=== PATIENT | male | born 1995 | race Two or more races ===

== ENCOUNTER 2024-12-03 15:17 | Emergency (ER) | payer MEDICAID, SELFPAY ==
--- NOTE | 2024-12-03 15:56 | XR_ITS ---
EXAMINATION: CT abdomen pelvis wo con ORDERING PROVIDER: SWATHI Cannon HISTORY: Left flank pain TECHNIQUE: Without intravenous or oral contrast, CT was used in the volumetric, helical imaging acquisition of the abdomen and pelvis with 2-D and 3-D reformats generated on a separate workstation and submitted for interpretation. Institutional dose reducing protocols were utilized. Evaluation of hollow viscus and solid viscera is limited secondary to lack of intravenous and oral contrast. RADIATION DOSE: DLP 931 mGy-cm COMPARISON: None. FINDINGS: LIVER: Diffuse decreased density. BILIARY: Unremarkable. PANCREAS: Unremarkable. SPLEEN: Unremarkable. ADRENAL GLANDS: Unremarkable. KIDNEYS: Unremarkable. URETERS: Trace fat stranding about the distal left ureter. No ureterolithiasis. No hydroureter. BLADDER: Mild bladder wall thickening. Bladder only mildly distended. CT provides limited evaluation of the urinary bladder. HOLLOW VISCUS: Couple of scattered colonic diverticula without surrounding inflammatory changes. Appendix is not abnormally dilated. No surrounding inflammatory changes. Nonobstructive bowel gas pattern. VASCULATURE: Limited evaluation without contrast. Trace aortoiliac atherosclerotic disease. PELVIS: No free fluid. Probable small right epididymal head cyst. LYMPH NODES: Limited evaluation without contrast. Grossly unremarkable. LUNG BASES: Punctate left lower lobe calcified granuloma. BONES: Normal. ABDOMINAL WALL: Small fat filled umbilical hernia with 3 mm neck. IMPRESSION: Mild bladder wall thickening and mild fat stranding about the distal left ureter without urolithiasis. Findings may be due to urinary tract infection, recently passed stone, and/or incomplete distention of the urinary bladder. Hepatic steatosis, colonic diverticulosis, and early atherosclerotic changes in a 29-year-old. Query metabolic syndrome.
--- NOTE | 2024-12-03 15:58 | PD.EDABDPN ---
ED Abdominal Pain RME/HPI General Chief Complaint: Abdominal Pain Stated complaint: LEFT UPPER ABD PAIN, DIARRHEA Time seen by provider: 12/03/24 15:47 Arrival date/time: 12/03/24 15:17 RME / HPI RME / HPI narrative: 29-year-old male patient came in for evaluation regarding left flank pain. Onset of symptoms since last night as left lower flank, described as sharp pain, severity moderate, patient feels like a knot on the left flank area. Denies any vomiting fever dysuria hematuria or other complaints. No medications taken prior to arrival Related Data Previous Rx's ?Medication ?Instructions ?Recorded cephalexin 500 mg capsule 500 mg PO TID 7 days #21 caps 12/03/24 Allergies Allergy/AdvReac Type Severity Reaction Status Date / Time No Known Allergies Allergy Verified 07/17/18 11:25 Review of Systems Review of Systems Narrative Review of Systems: Review of system reviewed and within normal limits except mentioned in HPI ED Exam Narrative Physical exam: VITAL SIGNS: Reviewed. GENERAL APPEARANCE: Alert and interactive, follows commands, no acute distress, HEAD AND FACE: Non-traumatic. ENT: PERRL, pink conjunctivitis, eyelid no trauma, Mucous membrane moist. NECK: Supple, nontender, no nuchal rigidity. CHEST: No tenderness, no crepitus, no paradoxical movement, no retractions. LUNGS: Clear, well ventilated, symmetric, no rales, no wheezing, no ronchi, no stridor, good breath sounds bilaterally. HEART: Regular rate, regular rhythm, no murmur, no gallops. ABDOMEN: Soft, positive bowel sounds, nondistended, no guarding, nontender, no rebound, no masses, left flank tenderness RECTAL: Deferred. GENITAL: Deferred. NEUROLOGICAL: Gross motor function intact sensory function intact, Appropriate for age. MUSCULOSKELETAL: low back nontender, full range of motion. EXTREMITIES: Nontender, full range of motion. SKIN: Color pink, dry, no rash, no lacerations, no abrasions, no contusions. LYMPHATICS: Deferred. Course Quality Measures none Orders Category Date Time Status CT abdomen pelvis wo con Stat Exams 12/03/24 15:56 Completed CBC [CBC] Stat Lab 12/03/24 16:07 Completed CMP [Comprehensive Metabolic Panel] Stat Lab 12/03/24 16:07 Completed UA, C/S IF [Urinalysis, C/S if Indicated] Stat Lab 12/03/24 16:30 Completed Ketorolac Inj [Toradol Inj] Med 12/03/24 15:56 Discontinued 30 mg IM X1 ONE cephALEXin [Keflex] Med 12/03/24 18:29 Once 500 mg PO X1 ONE Abdominal Pain [facility] Narrative [facility] Narrative:: 29-year-old male patient came in for evaluation regarding left flank pain. Onset of symptoms since last night as left lower flank, described as sharp pain, severity moderate, patient feels like a knot on the left flank area. Denies any vomiting fever dysuria hematuria or other complaints. No medications taken prior to arrival Laboratory workup is significant for UTI. Otherwise unremarkable. CT scan of the abdomen and pelvis showed Mild bladder wall thickening and mild fat stranding about the distal left ureter without urolithiasis. Findings may be due to urinary tract infection, recently passed stone, and/or incomplete distention of the urinary bladder. Hepatic steatosis, colonic diverticulosis, and early atherosclerotic changes in a 29-year-old. Query metabolic syndrome. Results discussed with the patient. Patient data External records reviewed:: None Clinical information provided by:: patient Social determinants that could affect healthcare access:: none Patient has the following chronic illnesses:: None How is presenting disease/condition affected by chronic disease/condition?: no chronic disease Evaluation data The following diagnostics were reviewed and interpreted by me:: lab results and radiology exam(s) Lab and/or radiology exams considered but not ordered:: None Interpretation Summary: See results in MDM Medications / Prescriptions Medications or Prescriptions considered but not ordered:: None Medication administrations:: Medication Administration History Discontinued Medications Cephalexin HCl (Cephalexin 250 Mg Capsule) 500 mg PO X1 ONE Stop: 12/03/24 18:30 Ketorolac Tromethamine (Ketorolac Inj 60 Mg/2 Ml Vial) 30 mg IM X1 ONE Stop: 12/03/24 15:57 Last Admin: 12/03/24 16:12 Dose: Not Given Documented By: OA Non-Admin Reason: Patient Refused Keflex and Toradol Consultations Consultation(s) initiated? (list below): No Diagnosis Differential diagnosis abdominal pain: abdominal pain and other (Kidney stones, UTI) Most likely diagnosis given after review of the tests above:: UTI, flank pain Admission Indicated Admission indicated?: not indicated Admission Request Was there a request for admission?: No Disposition Plan Disposition Plan: Discharge Discharge Attestation Discharge Attestation: The patient and all family members were given an opportunity to ask questions and understood the discharge instructions. Discharge instructions specifically effects, indications for sooner follow up or return to the emergency department, and the expected course of current diagnosis. Patient condition: Stable Discharge Plan Plan Patient Disposition: HOME (Self Care) Disposition Comment: Stable Prescriptions/Referrals Prescriptions/Med Rec: New cephalexin 500 mg capsule 500 mg PO TID 7 Days Qty: 21 0RF Referrals: Yuri Leroy MD [Primary Care Provider] - In 1 week Problem List Clinical Impression: UTI (urinary tract infection), Flank pain Patient/Caregiver Discharge Instructions Discharge Activity: activity as tolerated Education Materials: Understanding Urinary Tract ... Additional Instructions: Thank you for the opportunity for serving you today. You are stable for discharged . You are advised to: Follow-up with your PCP in 1 to 2 days Return to ED for worsening of symptoms Increase oral fluids Take medication as prescribed Print Language: Icelandic Stand Alone Forms: [employer] Award Info., Patient Portal Info Letter TRAVIS/SWATHI Supervising Physician TRAVIS/SWATHI Supervising Physician: MD Andrews
[2024-12-03 16:39] LABS: Basophils # (Auto) 0.1 Thou/mm3 (0.0-0.2); Basophils % (Auto) 1 % (0-2.5); Eosinophils # (Auto) 0.3 Thou/mm3 (0.0-0.5); Eosinophils % (Auto) 3 % (0-10); Hematocrit 44.1 % (41.0-53.0); Hemoglobin 15.7 g/dL (13.5-16.0); Immature Granulocytes % (Auto) 0 % (0-0); Immature Granulocytes Auto 0.03 Thou/mm3 (0.00-0.00); Lymphocytes % (Auto) 24 % (10-50); Mean Corpuscular HGB Conc 35.6 g/dl (31.0-37.0); Mean Corpuscular Hemoglobin 29.9 pg (25.0-35.0); Mean Corpuscular Volume 84 fL (80-100); Monocytes # (Auto) 0.7 Thou/mm3 (0.0-0.8); Monocytes % (Auto) 9 % (0-12); Neutrophils # (Auto) 5.3 Thou/mm3 (1.8-7.7); Neutrophils % (Auto) 63 % (37-80); Nucleated Red Blood Cell % 0 /100 WBC (0); Platelet Count 357 Thou/mm3 (140-440); RDW Standard Deviation 38.8 fL (35.1-43.9); Red Blood Count 5.25 Miln/mm3 (4.50-5.90); White Blood Count 8.5 Thou/mm3 (3.8-10.6)
[2024-12-03 16:41] LABS: Collection Type, Urine Clean Catch
[2024-12-03 16:48] LABS: Bilirubin,Urine Negative (Negative); Blood,Urine Negative (Negative); Clarity,Urine Clear (Clear/Hazy); Color,Urine Yellow (Lt Yel-Yel); Culture Indicated,Urine Not Indicated; Glucose, Urine Negative (Negative); Ketones,Urine Negative (Negative); Leukocyte Esterase,Urine Positive (Negative); Nitrite,Urine Negative (Negative); PH,Urine 6.5 (5.0-7.0); Protein,Urine Trace (Neg - Trace); RBC,Urine 1 /hpf (0-3); Squamous Epithelial Cell,Urine 6 /hpf (0-5); Urobilinogen,Urine Negative mg/dL (0.0-1.0); WBC,Urine 9 /hpf (0-5)
[2024-12-03 17:01] LABS: Alanine Aminotransferase 56 U/L (10-49); Albumin, Serum 4.8 gm/dL (3.5-5.0); Albumin/Globulin Ratio 1.5 (1.2-2.2); Alkaline Phosphatase 114 U/L (46-116); Anion Gap 10 (7-16); Aspartate Amino Transferase 29 U/L (0-34); BUN/Creatinine Ratio 6 Ratio (12-20); Bilirubin,Total 0.7 mg/dL (0.3-1.2); Blood Urea Nitrogen < 5 mg/dL (9-23); Calcium 9.8 mg/dL (8.3-10.6); Calcium (Corrected) 9.8 mg/dL (8.5-10.1); Carbon Dioxide 27.6 mMol/L (20.0-31.0); Chloride 101 mMol/L (98-107); Creatinine (Component) 0.8 mg/dL (0.6-1.3); Globulin 3.2 gm/dL (2.3-3.5); Glucose 101 mg/dL (74-106); Osmolality,Calculated 274 (275-295); Potassium 3.6 mMol/L (3.4-5.1); Sodium 139 mMol/L (136-145); eGFR > 60 See Note
[2024-12-03] MEDS: cephALEXin 250 MG CAPSULE 500 MG PO (19:01)
== END 2024-12-03 19:23 | disposition home or self-care (01) ==
PROVIDERS: Nurse Practitioner Family; Emergency Provider Emergency Medicine; PCP Family Medicine
DX: N39.0 Urinary tract infection, site not specified (principal)
CPT/HCPCS: 36415; 74176; 80053; 81001; 85025; 99284; A9270

== ENCOUNTER 2025-05-31 22:36 | Emergency (ER) | payer MEDICAID, SELFPAY ==
[2025-05-31 22:38] VITALS: BMI 38.7
--- NOTE | 2025-05-31 23:18 | XR_ITS ---
Examination: PA lateral chest 2 views. Technique: Upright PA lateral chest 2 views. Date and time: May 31, 2025, 11:17 PM Indications: Coughing shortness of breath today, history pneumonia in these ago. Findings: Normal heart size. No pneumonia or pulmonary edema. The osseous structures are intact Impression: No pneumonia identified.
[2025-05-31 23:44] VITALS: BP 162/84; PULSE 92; RESP 19; TEMP 36.7; O2SAT 95
--- NOTE | 2025-05-31 23:55 | EDNOTE_ITS ---
ED SOB =RME/HPI General Chief Complaint: Shortness of Breath/Dyspnea Stated Complaint: COUGH,DIFF BREATHING Time Seen by Provider: 06/01/25 00:07 Arrival date/time: 05/31/25 22:36 RME / HPI RME / HPI Narrative: See [facility] for Dr. Don's HPI documentation. Related Data Previous Rx's ?Medication ?Instructions ?Recorded albuterol sulfate 90 mcg/actuation 2 puff inhalation Q 6H PRN 06/01/25 aerosol inhaler shortness of breath or wheez ing #8.5 grams azithromycin 500 mg tablet 500 mg PO QDAY 3 days #3 ta bs 06/01/25 (Zithromax TRI-DONTA) prednisone 50 mg tablet 50 mg PO QDAY #3 tabs Allergies Allergy/AdvReac Type Severity Reaction Status Date / Time No Known Allergies Allergy Verified 05/31/25 22:37 Review of Systems Review of Systems Systems Reviewed: All systems reviewed, normal except as documented Past Medical History Past Medical History NEUROLOGIC: Negative Neurological Disorders or Seizures CARDIAC: Negative Cardiac Disorders or Congestive Heart Failure RESPIRATORY: Negative Chronic Obstructive Pulmonary Disease (COPD) GASTROINTESTINAL: Negative Gastrointestinal Disorders, Hepatitis or Colorectal Cancer GENITOURINARY: Negative Genitourinary Disorders, Renal Disease or Prostate Cancer REPRODUCTIVE: Negative Breast Cancer or Testicular Cancer MUSCULOSKELETAL: Negative Musculoskeletal Disorders or Bone Cancer ENDOCRINE: Negative Endocrine Disorders, Diabetes Mellitus Type 1 or Diabetes Mellitus Type 2 HEMATOLOGIC: Negative Blood Disorders OTHER HISTORY: Positive Falls (3 MONTHS AGO, SOCCER, HURT RIGHT KNEE); Negative Hospitalization, Autoimmune Disease, Down Syndrome, Developmental Delay, Shingles, Blood Transfusions, Blood Transfusion Reaction, Anesthesia Reactions, Organ Transplant, Chemotherapy, Radiation Therapy, Hyperbaric Therapy, MRSA, VRSA, Vancomycin-Resistant Enterococci, Human Immunodeficiency Virus (HIV), Chicken Pox, Measles, Mumps, Rubella (Nepalese Measles), Pertussis, Clostridium Difficile, Breast Cancer, Cervical Cancer, Colorectal Cancer, Lung Cancer, Ovarian Cancer, Prostate Cancer or Testicular Cancer Family History FAMILY HISTORY: Negative Family Psychiatric Problems, Family Respiratory Disorders, Family Cardiac Disorders, Family Gastrointestinal Problems, Family Cancer, Family Surgery or Family Anesthesia Reaction Surgical History SURGICAL: Negative Cardiac Surgery, Endocrine Surgery, Ear Surgery, Abdominal Surgery, Nephrectomy, Joint Replacement, Neurologic Surgery, Mastectomy, Vasectomy or Organ Transplant Social History SMOKING STATUS: Never smoker ED Exam Narrative Physical exam: See [facility] for Dr. Don's physical exam documentation. Course Course Course Narrative: CXR is ordered for determining the etiology of shortness of breath. Quality Measures none Orders Category Date Time Status Bedside COVID-19 Antigen Test NOW Care 05/31/25 23:59 Completed Bedside Influenza A&B Antigen Test NOW Care 05/31/25 23:59 Completed XR chest 2V Stat Exams 05/31/25 23:18 Completed Albuterol/Ipratr Rt Abbey [Duoneb Rt Abbey] Med 05/31/25 23:59 Discontinued 3 ml INH X1 ONE Azithromycin Po [Zithromax PO] Med 06/01/25 00:52 Discontinued 500 mg PO X1 ONE predniSONE Med 05/31/25 23:59 Discontinued 60 mg PO X1 ONE Vital Signs Vital signs: Vital Signs Temperature 98.1 F 05/31/25 23:44 Pulse Rate 92 05/31/25 23:44 Respiratory Rate 19 05/31/25 23:44 Blood Pressure 162/84 H 05/31/25 23:44 Pulse Oximetry (%) 95 05/31/25 23:44 Oxygen Delivery Method Room Air 05/31/25 23:44 Shortness of Breath / Dyspnea MDM Narrative MDM Narrative:: This section includes all my notes and documentations, including HPI, PE, and ED course. Wade Don MD HPI: 30yo male here with cough and shortness of breath. Was diagnosed with pneumonia about 2 weeks ago. After taking 1 dose of ABX, he stopped because it made him dizzy. No fever or chills. No other complaints. ROS: All negative except as documented in HPI. Physical Exam: General: Alert and oriented. Cough noted. Eyes: Conjunctivae and lids clear. ENT: No nasal congestion. Pharynx normal. TM normal bilaterally. Neck: Supple. Heart: RRR. Lungs: No respiratory distress. Good air movement with scattered rhonchi. Abdomen: Soft and nontender. Skin: Warm and dry. Neuro: Alert and oriented X 3. I reviewed all diagnostic test results. My interpretation of the chest x-ray is increased bronchial markings. COVID/Influenza negative. At this point, diagnoses include: Respiratory infection Treatment here included: Duoneb Prednisone Azithromycin Significant proven noted. Recommended outpatient management. Based on my best medical judgment, made decision no further evaluation or treatment indicated at this time. Patient understands and agrees to the discharge instructions customized and printed, see below. Discharge instructions from Dr. Don: --No physical exertion for 3 days to help rest the lungs. ?No smoking or exposure to smoking or pets or dust or humidity. --Zithromax to kill the germs causing the bronchitis. --Prednisone to help decrease the swelling in the airways. --Albuterol 2 puffs every 4-6 hours for 3 days to help keep the airways open. Then as needed for cough or shortness of breath. --See a private doctor on 06/03/2025 for recheck. Ask for help until you are completely better. Ask for referral to see lung specialist, to make sure there is no serious underlying lung condition. --Seek immediate medical care with worsening or with any concerns. Wade Don MD Patient data External records reviewed:: [facility] previous records (Per chart review, patient has no relevant previous ED visits.) Clinical information provided by:: patient Social determinants that could affect healthcare access:: none Patient has the following chronic illnesses:: none How is presenting disease/condition affected by chronic disease/condition?: no chronic disease Evaluation data The following diagnostics were reviewed and interpreted by me:: lab results and radiology exam(s) Lab and/or radiology exams considered but not ordered:: none Interpretation Summary: I reviewed all diagnostic test results. My interpretation of the chest x-ray is increased bronchial markings. COVID/Influenza negative. Medications / Prescriptions Medications or Prescriptions considered but not ordered:: none Medication administrations:: Medication Administration History Discontinued Medications Albuterol/Ipratropium (Albuterol/Ipratropium (Duoneb) Rt Abbey 3 Ml Nebu) 3 ml INH X1 ONE Stop: 06/01/25 00:00 Last Admin: 06/01/25 00:35 Dose: 3 ml Documented By: QUYNH Azithromycin (Azithromycin 250 Mg Tablet) 500 mg PO X1 ONE Stop: 06/01/25 00:53 Last Admin: 06/01/25 01:05 Dose: 500 mg Documented By: MAYA Prednisone (Prednisone 20 Mg Tablet) 60 mg PO X1 ONE Stop: 06/01/25 00:00 Last Admin: 06/01/25 00:22 Dose: 60 mg Documented By: MAYA Duoneb, Prednisone, Azithromycin Consultations Consultation(s) initiated? (list below): No Diagnosis Shortness of Breath Differential Diagnosis: acute exacerbation of chronic obstructive airways disease, congestive heart failure, community acquired pneumonia, asthma with exacerbation and other (COVID, Influenza, viral syndrome) Most likely diagnosis given after review of the tests above:: Respiratory infection Admission Indicated Admission indicated?: not indicated Explain why admission is indicated or not indicated:: With significant improvement and no condition needing emergent intervention, th ere was no indication for admission. Admission Request Was there a request for admission?: No Disposition Plan Disposition Plan: Discharge Discharge Attestation Discharge Attestation: The patient and all family members were given an opportunity to ask questions and understood the discharge instructions. Discharge instructions specifically effects, indications for sooner follow up or return to the emergency department, and the expected course of current diagnosis. Patient condition: Stable Discharge Plan Plan Patient Disposition: HOME (Self Care) Prescriptions/Referrals Prescriptions/Med Rec: New prednisone 50 mg tablet 50 mg PO QDAY Qty: 3 0RF albuterol sulfate 90 mcg/actuation HFA aerosol inhaler 2 puff inhalation Q6H PRN (Reason: shortness of breath or wheezing) Qty: 8.5 0RF azithromycin [Zithromax TRI-DONTA] 500 mg tablet 500 mg PO QDAY 3 Days Qty: 3 0RF Ref[facility]: [facility] [Primary Care Provider, [facility]] - In 1 week Problem List Clinical Impression: Respiratory infection Patient/Caregiver Discharge Instructions Discharge Activity: activity as tolerated Education Materials: ED Bronchitis, Antibiotics (Child) Additional Instructions: Discharge instructions from Dr. Don: --No physical exertion for 3 days to help rest the lungs. ?No smoking or exposure to smoking or pets or dust or humidity. --Zithromax to kill the germs causing the bronchitis. --Prednisone to help decrease the swelling in the airways. --Albuterol 2 puffs every 4-6 hours for 3 days to help keep the airways open. Then as needed for cough or shortness of breath. --See a private doctor on 06/03/2025 for recheck. Ask for help until you are completely better. Ask for referral to see lung specialist, to make sure there is no serious underlying lung condition. --Seek immediate medical care with worsening or with any concerns. Print Language: Icelandic Stand Alone Forms: [employer] Award Info., Patient Portal Info Letter
[2025-06-01 00:35] VITALS: PULSE 90; RESP 19; O2SAT 99
[2025-06-01] MEDS: ALBUTEROL/IPRATROPIUM (Duoneb) RT SOL 3 ML NEBU INH (00:35)
[2025-06-01] MEDS: AZITHROMYCIN 250 MG TABLET 500 MG PO (01:05)
[2025-06-01 01:20] VITALS: RESP 18
== END 2025-06-01 01:42 | disposition home or self-care (01) ==
PROVIDERS: Emergency Provider Emergency Medicine; PCP Family Medicine
DX: J98.8 Other specified respiratory disorders (principal)
CPT/HCPCS: 71046; 87400; 87811; 94640; 99283; A9270; J7512

== ENCOUNTER → 2025-07-25 | Outpatient (CLI) | payer MEDICAID, SELFPAY ==
--- NOTE | 2025-07-25 10:00 | XR_ITS ---
Examination: CT maxillofacial, without intravenous contrast. 2-D sagittal reconstructions. 3-D reconstructions. 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 2-D sagittal and coronal reconstructions. 3-D reconstructions. Low dose protocols were performed. One or more of the following dose reduction techniques were used; automated exposure control, adjustment of the mA and/or KV according to patient size, use of iterative reconstruction technique. Findings: Chronic left frontal sinus disease Prominent ethmoid chronic sinus disease, severe on the left Marked opacification of the left nasal airway including enlargement left middle and left inferior nasal turbinate Mild mucosal thickening in the maxillary antra 21 mm retention cyst right maxillary antrum IMPRESSION: Significant sinus disease as above including significant mucosal disease in the left nasal airway.
== END | disposition home or self-care (01) ==
LOC: CCTX 10:11
PROVIDERS: PCP Family Medicine; Referring Provider Nurse Practitioner Family; Visit Provider Nurse Practitioner Family
DX: J32.1 Chronic frontal sinusitis (principal)
CPT/HCPCS: 70486